=== PATIENT | male | born 1945 | race Caucasian/White ===

== ENCOUNTER 2019-02-13 12:36 | Inpatient (IN) | payer MEDICARE, BC ==
[2019-02-13 13:25] LABS: #Lymphocytes 1.2 thou/uL (1.20-3.40); #Monocytes 0.9 thou/uL (0.11-0.59); #Neutrophils 15.1 thou/uL (1.40-6.50); %Basophils 0.2 % (0.0-1.0); %Eosinophils 0.1 % (0.0-10.0); %Lymphocytes 6.9 % (21.0-51.0); %Neutrophils 87.9 % (42.0-75.0); Hemoglobin 17.7 g/dL (14.0-18.0); Mean Corpuscular Hemoglobin 29.9 pg (27.0-31.0); Mean Corpuscular Volume 93.4 fL (78.0-98.0); Platelet Count 246 thou/uL (130-400); RBC Distribution Width 13.4 % (11.5-14.5); Red Blood Cell (RBC) Count 5.94 mill/uL (4.70-6.10); White Blood Cell (WBC) Count 17.2 thou/uL (4.8-10.8)
[2019-02-13 13:34] LABS: Bilirubin Small (Negative); Blood, Urine Small (Negative); Clarity TURBID (Clear); Glucose, Urine (Dipstick) Negative (Negative); Leukocyte Negative (Negative); Nitrite Negative (Negative); Protein, Urine (Dipstick) 100 mg/dL (Neg-Trace)
[2019-02-13 13:36] LABS: Bacteria/HPF None Seen HPF (None Seen); Squamous Epithelial 0-3 HPF (0-3); WBC/HPF 0-3 HPF (0-3)
[2019-02-13 13:56] LABS: Pathc Cast-AUWi Flag 13.73 (0-2.49)
[2019-02-13] MEDS ORDERED: ISOVUE-370 76%-LOCM 1 ML ONE (13:58)
--- NOTE | 2019-02-13 13:58 | CT ---
CT Abdomen Pelvis W Con: 02/13/2019 1:14 PM CLINICAL INFORMATION: Abdominal pain. History of colon surgery with hepatic metastases. COMPARISON: PET CT 04/15/2016, CT abdomen/pelvis 09/09/2015 Procedure: Multiple contiguous axial images were obtained and a CT of the abdomen and pelvis with IV contrast. C oronal reformats were performed. FINDINGS: Lower Chest: within normal limits. Abdomen: Liver: There are hypodensities scattered throughout the liver measuring up to 3.4 cm in size which ar e nonspecific but could represent hepatic metastases. There appears to have been resection of the left lobe of the liver. Bile Ducts: Normal caliber. Gallbladder: No calcified gallstones. Normal caliber wall. Pancreas: within normal limits. Spleen: within normal limits. Adrenals: 3.4 cm fat-containing right adrenal mass. No left adrenal abnormality. Kidneys: within normal limits. Pelvis: Reproductive Organs: No pelvic masses. Ureters: within normal limits. Bladder: within normal limits. Peritoneum: A small amount of free fluid is seen in the pelvis. No free air is identified. Bowel: There are dilated proximal small bowel loops. There is thickening of the wall of the small bow el proximal to the ventral abdominal wall hernia. The distal small bowel and colon are decompressed. Mesentery and Retroperitoneum: No enlarged mesenteric or retroperitoneal lymph nodes. Vessels: Atherosclerotic calcifications. Abdominal Wall: There is a 7.0 cm ventral hernia containing small bowel. Bones: Degenerative changes are seen in the spine. IMPRESSION: 1. Ventral hernia containing dilated loops of small bowel. This may represent an incarcerated hernia and bowel obstruction. 2. Hypodensities in liver are concerning for hepatic metastatic disease 3. Right adrenal myelolipoma
[2019-02-13 14:00] LABS: Hyaline Casts/LPF 7-10 HYALINE CAST LPF (0-3 Hyaline)
[2019-02-13 14:01] LABS: Renal Epithelial None Seen HPF (0-3); Transitional Epithelial NONE SEEN HPF (0-3)
[2019-02-13 14:16] LABS: ALT (SGPT) 13 U/L (8-55); AST (SGOT) 20 U/L (5-34); Albumin 3.9 g/dL (3.4-4.8); Alkaline Phosphatase 140 U/L (40-150); Anion Gap 18 mmol/L (10-20); BUN (Urea Nitrogen) 13 mg/dL (8.4-25.7); Bilirubin, Total 1.1 mg/dL (0.2-1.2); Calc. Creatinine Clearance 0 mL/min (70-130); Calcium 9.8 mg/dL (7.8-10.44); Carbon Dioxide 20 mmol/L (23-31); Chloride 101 mmol/L (98-107); Estimated GFR-MDRD 68; Glucose 200 mg/dL (83-110); Lipase 11 U/L (8-78); Potassium 3.4 mmol/L (3.5-5.1); Protein, Total 7.9 g/dL (5.8-8.1); Sodium 136 mmol/L (136-145)
[2019-02-13] MEDS ORDERED: Ondansetron PF 4 MG/2 ML Vial ONE (16:12)
--- NOTE | 2019-02-13 18:39 | RAD ---
CHEST ONE VIEW 02/13/19 HISTORY: Pain. COMPARISON: Radiograph from 2015. FINDINGS: There is abnormal linear markings in the left lung base unchanged from 2015. The lungs are hyperinflated. Port catheter is in place in similar position. Large bulla right middle lobe. IMPRESSION: Chronic findings. No acute abnormality. POS: HOME
[2019-02-13] MEDS ORDERED: Ondansetron PF 4 MG/2 ML Vial IVP PRN ×2 (19:18→19:24)
[2019-02-13] MEDS ORDERED: hydrALAZINE 20 MG/ML VIAL SLOW IVP PRN (19:18)
[2019-02-13] MEDS ORDERED: Dextrose 5% in Water 1,000 ML IV PRN (19:24)
[2019-02-13] MEDS ORDERED: Dextrose 50% Abboject 50 ML SYRINGE SLOW IVP PRN (19:24)
[2019-02-13] MEDS ORDERED: Acetaminophen 1,000 MG in Premix Bag 1 BAG IVPB PRN (19:24)
[2019-02-13] MEDS ORDERED: Morphine 4 MG/ML VIAL SLOW IVP PRN (19:24)
[2019-02-13] MEDS ORDERED: Ketorolac Tromethamine 30 MG/ML VIAL IVP PRN (19:24)
[2019-02-13] MEDS ORDERED: Lactated Ringer's 1,000 ML IV SCH (19:30)
[2019-02-13] MEDS ORDERED: Meropenem 2 GM in Admixture Fee 1 EACH IVPB SCH (19:30)
[2019-02-13] MEDS ORDERED: Morphine 2 MG/ML SYRINGE SLOW IVP PRN (19:47)
--- NOTE | 2019-02-13 19:54 | HP ---
HISTORY OF PRESENT ILLNESS: Vikas Reyna is a 73-year-old male patient, followed by Dr. Whittington, whom I am seeing to assume his care tomorrow and this weekend. The patient underwent, in September 10, 2015, right colectomy for obstructing tumor, metastatic to liver, laparoscopic hand-assisted with a left subclavian vein MediPort placement. T3 N1 M1 right colon cancer. He had liver metastasis at that time. He has seen Dr. Lopez, undergone a left hepatic lobectomy and treatment of right hepatic lobe lesions. He has lesions that are followed. Echocardiogram September 2015, read by Dr. Martin Enriquez reveals EF 60% to 65%, [id number] tricuspid regurgitation. PAST MEDICAL HISTORY: Tobacco abuse, COPD, and metastatic colon cancer. PAST SURGICAL HISTORY: Knee surgery; cervical spine surgery; right colon resection; left hepatic lobectomy; right hepatic lesions treated by Dr. Lopez also, separate operation. ALLERGIES: NONE. SOCIAL HISTORY: The patient smokes 1/2 to 1 pack per day. Drinks beers occasionally. MEDICATIONS: 1. DuoNebs. 2. Tramadol. 3. Florastor. 4. P.r.n. Phenergan. PHYSICAL EXAMINATION: HEAD, EARS, EYES, NOSE, THROAT: Unremarkable. LUNGS: No wheezing. CARDIAC: Regular rate and rhythm without murmur or gallop. ABDOMEN: Soft and nontender. Right subcostal scar, midline incision, incisional hernia, supraumbilical midline, partially reducible. ABDOMEN: Soft, nondistended, nontympanitic. LABORATORY AND DIAGNOSTIC DATA: CAT scan reveals densities in the right lobe, measuring up to 3.4 cm, representing probably hepatic metastasis. Previous resection of left lobe of liver. Bile ducts normal. Basic metabolic profile unremarkable. Glucose 200. White count 17, hemoglobin 17. ASSESSMENT AND PLAN: Metastatic colon cancer with incisional hernia that is symptomatic emergency room. We would recommend robotic laparoscopic mesh repair, possible open, undergoing chemotherapy, and tobacco abusing increases risk of recurrence and complications. We will provide DVT prophylaxis and plan this tomorrow, currently without any NG tube. Job ID: [id number]
[2019-02-13] MEDS ORDERED: Enoxaparin Sodium 40 MG/0.4 ML SYRINGE SC SCH (21:00)
[2019-02-13] MEDS ORDERED: Famotidine/PF 20 mg/2ml Vial ONE (23:32)
[2019-02-14] MEDS ORDERED: Lactated Ringer's 1,000 ML IV SCH (02:45)
[2019-02-14] MEDS: Famotidine/PF 20 mg/2ml Vial SLOW IVP SCH ×2 (03:18→09:49)
[2019-02-14] MEDS: D5 1/2 NS w/20 mEq KCL 1,000 ML IV SCH ×3 (03:24→12:08)
[2019-02-14] MEDS ORDERED: Meropenem 2 GM, Admixture Fee 1 EACH in Sodium Chloride 0.9% 100 ML IVPB SCH (05:30)
[2019-02-14 06:20] LABS: #Lymphocytes 1.3 thou/uL (1.20-3.40); #Monocytes 2.1 thou/uL (0.11-0.59); #Neutrophils 15.6 thou/uL (1.40-6.50); %Basophils 0.1 % (0.0-1.0); %Eosinophils 0.1 % (0.0-10.0); %Lymphocytes 6.6 % (21.0-51.0); %Monocytes 11.3 % (0.0-10.0); %Neutrophils 81.9 % (42.0-75.0); Hemoglobin 16.7 g/dL (14.0-18.0); Mean Corpuscular HGB CONC 32.8 g/dL (32.0-36.0); Mean Corpuscular Hemoglobin 30.8 pg (27.0-31.0); Mean Corpuscular Volume 93.9 fL (78.0-98.0); Mean Platelet Volume 8.4 fL (7.4-10.4); Platelet Count 188 thou/uL (130-400); RBC Distribution Width 13.7 % (11.5-14.5); Red Blood Cell (RBC) Count 5.44 mill/uL (4.70-6.10)
[2019-02-14 06:42] LABS: Anion Gap 16 mmol/L (10-20); BUN (Urea Nitrogen) 20 mg/dL (8.4-25.7); Calc. Creatinine Clearance 63 mL/min (70-130); Calcium 8.7 mg/dL (7.8-10.44); Carbon Dioxide 17 mmol/L (23-31); Chloride 107 mmol/L (98-107); Estimated GFR-MDRD 56; Glucose 165 mg/dL (83-110); Potassium 4.4 mmol/L (3.5-5.1); Sodium 136 mmol/L (136-145)
[2019-02-14] MEDS ORDERED: Prevnar 13-Val Conj/PF 0.5 ML SYRINGE IM ONE (09:00)
--- NOTE | 2019-02-14 09:38 | CON ---
DATE OF CONSULTATION: HISTORY OF PRESENT ILLNESS: Vikas Reyna is a 73-year-old gentleman, who was brought to the ER with acute abdomen and was found to have incarcerated ventral hernia. Surgery is to be performed tomorrow. Pulmonary meeks, he says he is not having any issues and denies any difficulty breathing, but he smokes about half a pack a day. He sees Dr. De Dios for routine care. He has history of known metastatic colon cancer to the liver. Sees a local oncologist. PAST MEDICAL HISTORY: COPD, metastatic cancer, history of atrial fibrillation and ongoing tobacco abuse. PREVIOUS SURGERIES: Including colon resection, hepatic lobectomy, cervical spine surgery, and knee surgery. MEDICATIONS: Tramadol 100 and nebulizer as needed. ALLERGIES: NONE. SOCIAL AND FAMILY HISTORY: Unremarkable. Alcohol, none. Tobacco, as noted. REVIEW OF SYSTEMS: Ten-point negative. PHYSICAL EXAMINATION: VITAL SIGNS: O2 saturation is 92%, pulse 135, blood pressure 118/75, respiratory rate . GENERAL: He is awake, alert, responsive, in no distress. CHEST: Decreased breath sounds. No wheezing. CARDIAC: Normal S1, S2. No gallops. ABDOMEN: No masses. LABORATORY DATA: White count 40438, H and H is 16 and 51, and platelet count 188. Creatinine is 1.25. Urine was normal. Chest x-ray shows hyperinflation. CT abdomen as noted shows evidence of hepatic metastasis and ventral hernia, dilated loops incarcerated. IMPRESSION: 1. Incarcerated ventral hernia for surgery today. 2. Metastatic colon cancer to the liver. 3. Chronic obstructive pulmonary disease, tobacco abuse. 4. History of atrial fibrillation. PLAN: Await input from surgery and he is on broad-spectrum antibiotics. I am going to start him on neb treatments and supportive care. We will follow while in the ICU. Consultation note, 70 minutes, 50% direct patient care. Job ID: [id number]
--- NOTE | 2019-02-14 09:39 | RAD ---
ABDOMEN 2 VIEWS WITH A 1 VIEW CHEST X-RAY: Date: 02/14/19 HISTORY: Small bowel follow-up. COMPARISON: CT prior day. FINDINGS: There are atelectatic changes in the left lung base, superimposed on scarring. Cord catheter tip in s imilar position. On the left lateral decubitus view, no free air is seen on the right-sided hemiabdomen. There are dil ated and air-filled loops of small bowel. IMPRESSION: No evidence for free air. Small bowel obstruction. POS: [facility]
--- NOTE | 2019-02-14 12:00 | PRG ---
DATE OF SERVICE: 02/14/2019 Vikas Reyna today is still having pain. He was transferred to the IMCU from the ER last night due to hypotension and tachycardia. He was given fluid boluses. His hemoglobin was 17 in the ER. This morning, his blood pressure is 134/102, heart rate has decreased from 150 to 112. He has sinus tach. This has much improved with hydration. White count is 19, hemoglobin 16. Basic metabolic profile is unremarkable. CO2 has decreased to 17. Dr. Bridges has seen him. As the patient continues to smoke 1/2 to 1 pack per day and has COPD, he will need preoperative critical care help in management. He is at high risk for requiring a postoperative ventilation. He has a history of atrial fibrillation. Family was informed that today we were planning robotic laparoscopic mesh repair of incisional hernia, possible open. They understand the risks and benefits, and the concerns. They understand the need for postoperative ventilation and questions had been answered. This morning, his sodium is 136, potassium 4.4, CO2 is 17, creatinine 1.27, GFR 56. His white count is 19, hemoglobin 16. Note, plan as above. Job ID: [id number]
[2019-02-14] MEDS: Meropenem 2 GM, Admixture Fee 1 EACH in Sodium Chloride 0.9% 100 ML IVPB SCH ×2 (12:06→20:55)
[2019-02-14] MEDS ORDERED: Fentanyl 100 MCG/2 ML VIAL ONE ×5 (13:04→17:08)
[2019-02-14] MEDS ORDERED: Midazolam HCl 2 mg/2 ml Vial ONE (13:04)
[2019-02-14] MEDS ORDERED: Bupivacaine/Epinephrine 0.25% 30 ML VIAL ONE (13:28)
[2019-02-14] MEDS ORDERED: Phenylephrine HCL 10 MG/ML VIAL ONE (14:54)
[2019-02-14] MEDS ORDERED: Albumin 5% 500 ML ONE (15:40)
[2019-02-14] MEDS ORDERED: SUGAMMADEX SODIUM 200 MG/2 ML VIAL ONE (16:19)
[2019-02-14] MEDS ORDERED: Bupivacaine HCl 0.5%/Epinephrine 1:200,000/PF 30 ml Vial ONE (16:31)
[2019-02-14] MEDS ORDERED: HYDROmorphone 2 MG/ML VIAL SLOW IVP PRN (16:46)
[2019-02-14] MEDS ORDERED: PACU-Morphine 4MG/ML VIAL SLOW IVP PRN (16:46)
[2019-02-14] MEDS ORDERED: Promethazine HCl 25 MG/ML VIAL IM PRN (16:46)
[2019-02-14] MEDS ORDERED: Ondansetron HCl/PF 4 MG/2 ML Vial IVP PRN (16:46)
[2019-02-14] MEDS ORDERED: Promethazine HCl 25 MG/ML VIAL SLOW IVP PRN (16:46)
[2019-02-14] MEDS ORDERED: Promethazine HCl 25 MG/ML VIAL ONE (16:47)
[2019-02-14] MEDS ORDERED: Metoprolol Tartrate 5 MG/5 ML VIAL ONE (16:48)
[2019-02-14] MEDS ORDERED: Rocuronium Bromide 10 MG/ML (10ML VIAL) ONE (16:48)
[2019-02-14] MEDS ORDERED: PROPOFOL 200 MG/20 ML VIAL ONE (16:48)
[2019-02-14] MEDS ORDERED: Lidocaine 1% PF 5 ML VIAL ONE (16:48)
[2019-02-14] MEDS ORDERED: Esmolol 100 MG/10 ML VIAL ONE (16:48)
[2019-02-14] MEDS ORDERED: Succinylcholine Chloride 20 MG/ML 10 ml SYRINGE FS ONE (16:48)
[2019-02-14] MEDS ORDERED: PHENYLEPHRINE-NS 100 MCG/ML 10 ML SYRINGE ONE (16:48)
--- NOTE | 2019-02-14 17:21 | RAD ---
Chest one view HISTORY: Central line placement. COMPARISON: Earlier exam on the same date. FINDINGS: Tip of a new right subclavian central venous catheter projects over the cavoatrial junction . No evidence of pneumothorax. Nasogastric tube descends to the stomach, exiting the inferior margin of the image. Left subclavian Port-A-Cath remains in place. Opacity at the left base has increased, with the appearance of pleural fluid. IMPRESSION: Right subclavian central venous catheter and nasogastric tube are in good radiographic po sition. Interval increase of left pleural fluid and left basilar atelectasis.
[2019-02-14] MEDS: Lactated Ringer's 1,000 ML IV SCH (17:50)
[2019-02-14] MEDS: Albumin 25% 25 GM/100 ML BOT IVPB SCH ×2 (17:50→23:29)
--- NOTE | 2019-02-15 00:31 | OP ---
DATE OF PROCEDURE: 02/14/2019 PREOPERATIVE DIAGNOSES: History of right colon cancer status post right colectomy with left hepatic lobectomy and third operation to treat metastatic focus, right lobe, ongoing chemotherapy for colon, hepatic metastasis, tobacco abuse, incisional hernia, incarcerated. POSTOPERATIVE DIAGNOSES: History of right colon cancer status post right colectomy with left hepatic lobectomy and third operation to treat metastatic focus, right lobe, ongoing chemotherapy for colon, hepatic metastasis, tobacco abuse, with incarcerated strangulated incisional hernia with small bowel gangrene. PROCEDURES PERFORMED: Laparoscopy converted to laparotomy with resection of hernia sac, lysis of adhesions, resection of 63 inches gangrenous mid small bowel, nonviable, preservation of 47 inches proximal jejunum and preservation of 55 inches distal ileum with primary anastomosis. ESTIMATED BLOOD LOSS: 70 mL. BLOOD TRANSFUSED: None. No evidence of metastatic disease noted, visibly seen, although radiologically on CAT scan densities noted consistent with past history of colon metastasis, remaining right lobe after left lobe resection by Dr. Lopez, right subclavian vein central line. ANESTHESIA: General, TAP block. DESCRIPTION OF PROCEDURE: The patient was taken to the operating room where under general anesthesia and TAP block, abdomen was prepared with ChloraPrep and draped in routine fashion. Left lateral incision, subcostal, made and pneumoperitoneum to 15 mmHg was obtained with a Veress needle, replacing with a 5 port and video laparoscope was inserted noting ischemic gangrenous bowel. Scope was removed and midline laparotomy was made through the old incision from the umbilicus, cephalad. Incision was carried down to the skin and subcutaneous tissue, opened the hernia noting gangrenous small bowel. Fascial bridges taken down with cautery. Midline fascia was opened slightly more superiorly and inferiorly allowing exploration. Small bowel removed. There were few adhesions, taken down with cautery and sharp dissection. Once the small bowel was detorsed, segments regained vascularity, but the mid small bowel, 63 inches, remained gangrenous. This was resected using the LigaSure dividing each end along viable areas with KRISTEN stapler. Abdominal cavity was irrigated. A [id number]-[id number] anastomosis was created with a KRISTEN stapling technique using several fires of KRISTEN blue load stapler. Mesenteric defect was closed with 3-0 silk [id number] and anastomosis was reinforced with interrupted Lembert suture of 3-0 silk. Abdominal cavity was thoroughly irrigated with saline solution. Good hemostasis was noted. No other complications were noted. Remaining bowel was viable. There was 47 inches of viable jejunum proximally and 55 inches viable ileum distally. The 63 inches mid small bowel gangrenous was resected. The patient tolerated the procedure well. Abdominal cavity was thoroughly irrigated, irrigant evacuated. The hernia sac was then debrided from the subcutaneous tissues identifying viable fascia. Fascia was then closed with a combination of continuous and occasional locking #1 PDS suture. Once this was complete, abdominal wall was irrigated, good hemostasis was obtained. Woden were used to approximate the midline wound distally and proximally of the skin and subcutaneous tissue left open with application of wound VAC. The patient tolerated the procedure well. He was extubated in the operating room, transferred to the recovery room and then ICU in stable condition. Job ID: [id number]
[2019-02-15] MEDS: Lactated Ringer's 1,000 ML IV SCH ×4 (02:05→19:40)
[2019-02-15] MEDS: Meropenem 2 GM, Admixture Fee 1 EACH in Sodium Chloride 0.9% 100 ML IVPB SCH ×3 (04:55→20:53)
[2019-02-15 05:28] LABS: Anion Gap 11 mmol/L (10-20); BUN (Urea Nitrogen) 19 mg/dL (8.4-25.7); Calc. Creatinine Clearance 81 mL/min (70-130); Calcium 8.3 mg/dL (7.8-10.44); Carbon Dioxide 26 mmol/L (23-31); Chloride 106 mmol/L (98-107); Estimated GFR-MDRD 74; Glucose 94 mg/dL (83-110); Magnesium 1.6 mg/dL (1.6-2.6); Potassium 4.1 mmol/L (3.5-5.1); Sodium 139 mmol/L (136-145)
[2019-02-15 05:31] LABS: Phosphorus 1.9 mg/dL (2.3-4.7)
[2019-02-15] MEDS: Albumin 25% 25 GM/100 ML BOT IVPB SCH ×3 (05:38→18:43)
[2019-02-15 05:40] LABS: Band 22 % (5-11); Hemoglobin 11.3 g/dL (14.0-18.0); Lymphocytes 9 % (21-51); MDiff Complete? YES; Mean Corpuscular HGB CONC 33.4 g/dL (32.0-36.0); Mean Corpuscular Hemoglobin 30.7 pg (27.0-31.0); Mean Corpuscular Volume 92.1 fL (78.0-98.0); Metamyelocyte 1 % (0-0); Monocytes 7 % (0-10); Neutrophil 61 % (42-75); Platelet Count 78 thou/uL (130-400); Platelet Morphology Comment Appears Decreased; RBC Distribution Width 13.3 % (11.5-14.5); Red Blood Cell (RBC) Count 3.67 mill/uL (4.70-6.10); White Blood Cell (WBC) Count 8.7 thou/uL (4.8-10.8)
[2019-02-15] MEDS ORDERED: Acetaminophen 1,000 MG in Premix Bag 1 BAG IVPB PRN (09:26)
[2019-02-15] MEDS ORDERED: Sodium Chloride 0.9% 500 ML IV SCH (09:30)
--- NOTE | 2019-02-15 09:46 | PRG ---
DATE OF SERVICE: 02/15/2019 SUBJECTIVE: The patient is status post small bowel resection for incarcerated small bowel obstruction. The patient is feeling better. He has come reporting minimal pain. Primary complaint is thirst, he wants something to drink. OBJECTIVE: VITAL SIGNS: On examination, his blood pressure is 139/74, pulse 104. GENERAL: He is awake, alert. ABDOMEN: He is putting a lot out of his NG tube, kind of brownish fluid. He has had 700 almost a liter out in the last 12 hours. His abdomen is slightly distended. He has a wound VAC in place. There is no erythema, minimal tenderness. LABORATORY DATA: His white count is 8.7, H and H 11 and 33, platelet count is only 78,000. His electrolytes are fine. Urinalysis clear. ASSESSMENT: Postoperative ileus. PLAN: He can have some ice chips. We will start him on some Protonix. We will give him a little fluid bolus. We may need to watch his heparin. Job ID: [id number]
--- NOTE | 2019-02-15 09:53 | PRG ---
DATE OF SERVICE: 02/15/2019 SUBJECTIVE: This morning status post lap, incarcerated ventral hernia, is doing well. No shortness of breath. OBJECTIVE: VITAL SIGNS: Pulse 100, respiratory rate on 3 L, blood pressure 130/71. CHEST: Decreased breath sounds. No wheezing. CARDIAC: Normal S1, S2. No gallops. ABDOMEN: No masses. LABORATORY DATA: Unremarkable. IMPRESSION: Laparotomy, incarcerated hernia, chronic obstructive pulmonary disease. PLAN: Continue antibiotics, neb treatments, supportive care. We will follow. Job ID: [id number]
[2019-02-15 12:11] LABS: Band 31 % (5-11); Hemoglobin 10.8 g/dL (14.0-18.0); Lymphocytes 10 % (21-51); MDiff Complete? YES; Mean Corpuscular HGB CONC 32.9 g/dL (32.0-36.0); Mean Corpuscular Hemoglobin 31.1 pg (27.0-31.0); Mean Corpuscular Volume 94.6 fL (78.0-98.0); Mean Platelet Volume 9.6 fL (7.4-10.4); Metamyelocyte 1 % (0-0); Monocytes 7 % (0-10); Neutrophil 51 % (42-75); Platelet Count 73 thou/uL (130-400); Platelet Morphology Comment Appears Decreased; RBC Distribution Width 13.4 % (11.5-14.5); Red Blood Cell (RBC) Count 3.48 mill/uL (4.70-6.10); White Blood Cell (WBC) Count 7.9 thou/uL (4.8-10.8)
--- NOTE | 2019-02-15 14:27 | EKG ---
Test Reason : Blood Pressure : / mmHG Vent. Rate : 122 BPM Atrial Rate : 122 BPM P-R Int : 144 ms QRS Dur : 072 ms QT Int : 312 ms P-R-T Axes : 072 048 087 degrees QTc Int : 444 ms Sinus tachycardia Otherwise normal ECG Confirmed by ONI BETANCUR DO ([id number]), managing editor THAI FORBES ([id number] on 02/15/2019 2:26:43 PM Referred By: Confirmed By:ONI BETANCUR DO
[2019-02-15] MEDS ORDERED: Albumin 25% 25 GM/100 ML BOT IVPB SCH (18:30)
[2019-02-16] MEDS: Lactated Ringer's 1,000 ML IV SCH ×5 (00:44→23:10)
[2019-02-16] MEDS: Meropenem 2 GM, Admixture Fee 1 EACH in Sodium Chloride 0.9% 100 ML IVPB SCH ×3 (04:31→19:59)
[2019-02-16 05:22] LABS: #Lymphocytes 0.6 thou/uL (1.20-3.40); #Monocytes 0.4 thou/uL (0.11-0.59); #Neutrophils 4.8 thou/uL (1.40-6.50); %Basophils 0.3 % (0.0-1.0); %Eosinophils 0.2 % (0.0-10.0); %Lymphocytes 10.7 % (21.0-51.0); %Monocytes 6.9 % (0.0-10.0); Hemoglobin 9.9 g/dL (14.0-18.0); Mean Corpuscular HGB CONC 33.3 g/dL (32.0-36.0); Mean Corpuscular Hemoglobin 31.5 pg (27.0-31.0); Mean Corpuscular Volume 94.4 fL (78.0-98.0); Mean Platelet Volume 9.1 fL (7.4-10.4); Platelet Count 79 thou/uL (130-400); RBC Distribution Width 13.2 % (11.5-14.5); Red Blood Cell (RBC) Count 3.16 mill/uL (4.70-6.10); White Blood Cell (WBC) Count 5.9 thou/uL (4.8-10.8)
[2019-02-16 05:26] LABS: Anion Gap 10 mmol/L (10-20); BUN (Urea Nitrogen) 10 mg/dL (8.4-25.7); Calc. Creatinine Clearance 109 mL/min (70-130); Calcium 8.8 mg/dL (7.8-10.44); Carbon Dioxide 30 mmol/L (23-31); Chloride 104 mmol/L (98-107); Estimated GFR-MDRD Greater than 90; Glucose 75 mg/dL (83-110); Magnesium 1.9 mg/dL (1.6-2.6); Phosphorus 1.3 mg/dL (2.3-4.7); Potassium 3.7 mmol/L (3.5-5.1); Sodium 140 mmol/L (136-145)
[2019-02-16] MEDS ORDERED: Digoxin 0.5 MG/2 ML AMP SLOW IVP SCH ×2 (09:00→16:00)
[2019-02-16] MEDS ORDERED: Magnesium 2 GM/NS 0.9% 100 ML 2 GM in Premix Bag 1 BAG IVPB SCH (09:00)
[2019-02-16] MEDS ORDERED: Magnesium 2 GM/50 ML 2 GM in Premix Bag 1 BAG IVPB SCH (09:15)
[2019-02-16] MEDS: Pantoprazole 40 MG VIAL IVP SCH (09:19)
[2019-02-16] MEDS ORDERED: Amiodarone 150 MG, Admixture Fee 1 EACH in Dextrose 5% in Water 100 ML IVPB SCH (11:15)
[2019-02-16] MEDS: Amiodarone 450 MG in Dextrose 5% in Water 250 ML IVPB SCH ×2 (11:29→19:09)
--- NOTE | 2019-02-16 12:28 | PRG ---
DATE OF SERVICE: 02/16/2019 SUBJECTIVE: The patient went into atrial flutter at a rapid ventricular rate. Cardiology has been consulted. He has been started on amiodarone drip. He feels fine. He is having no significant pain. He is consuming a quite a bit of ice chips. No flatus. OBJECTIVE: GENERAL: On examination, he is awake and alert. ABDOMEN: Soft, nondistended, and nontender. He has a wound VAC on place. VITAL SIGNS: His temperature is 98.1, pulse is 128 and in flutter, and blood pressure 120/78. He looks good otherwise. He has had 2100 mL of gastric drainage. The nurse reports a lot of that is the ice chips. Urine output is 2245. LABORATORY DATA: His white count is 5.9, hemoglobin and hematocrit 9.9, 29.8. Electrolytes are fine. Glucose is 75. ASSESSMENT: 1. Atrial flutter. 2. Postoperative ileus. PLAN: Continue NG suction. Job ID: [id number]
--- NOTE | 2019-02-16 18:04 | CON ---
DATE OF CONSULTATION: CORRECTION: I believe I stated the patient had hypercholesterolemia. I do not see in his records that he does have hypercholesterolemia. Please remove that from the records and also in the assessment and plan where the patient has hypercholesterolemia that we will continue statins, please disregard that if this is mentioned. Job ID: [id number]
--- NOTE | 2019-02-16 18:23 | CON ---
DATE OF CONSULTATION: 02/16/2019 INDICATION FOR CONSULTATION: A 73-year-old gentleman, who is status post GI surgery for incarcerated hernia, who has now developed atrial flutter, has a rapid ventricular response. HISTORY OF PRESENT ILLNESS: This very unfortunate 73-year-old with history of colon cancer and liver mets, has undergone several abdominal surgeries and then presented again with abdominal discomfort, underwent surgery I believe yesterday and in the postoperative period, he has now developed atrial flutter with a rapid ventricular response, heart rates in the 135. His carotid massage is easily detectable that this is underlying atrial flutter and his blood pressure is 121/ 71, O2 saturation is 97%. He is relatively comfortable. He is not having any complaints from a cardiac standpoint. He has been seen by Dr. Mcdaniel in the past and then evaluate for atrial fibrillation and flutter. Unfortunately, he has refused to take oral anticoagulation despite being told the other risk involved with embolic phenomenon. Otherwise, his cardiac status has remained stable throughout this time. He does have a history of hypertension, however, and has a long history of tobacco abuse and refuses to stop smoking. He smokes at least a pack a day and has smoked for close to 50 to 60 years. PAST MEDICAL HISTORY: Significant for the colon cancer, mets to the liver, hypertension, atrial fibrillation and flutter, history of cataract surgery, which has been relatively recent. He has had knee surgery and neck surgery. ALLERGIES: NONE. MEDICATIONS: Prior to admission include aspirin 81 mg a day. He takes olmesartan 20 mg half a tablet daily, Avastin 400 mg/16 mL directed as intravenously, as he had been doing relatively well with this. Otherwise, he was not on any significant medications prior to admission. At this time, his medications include magnesium. He has been given doses of magnesium and is not ongoing with this as needed. He is also on digoxin, has been given one dose, so the heart rate did not appear to be very successful. He is also on morphine and other p.r.n. medications. FAMILY HISTORY: Noncontributory. ALLERGIES: NONE. SOCIAL HISTORY: He is . He continues to smoke as noted above. REVIEW OF SYSTEMS: 12-point review of systems unremarkable except was noted in the history of present illness. LABORATORY DATA: Shows a WBC of 5.9, hemoglobin was 9.9. On admission, hemoglobin was 17.7. Platelet count is 79,000 and on admission was 246,000. His sodium is 140, potassium 3.7, BUN 10, creatinine 0.75,blood sugar 75. Troponin I, it was negative at 0.016. PHYSICAL EXAMINATION: GENERAL: Reveals an elderly gentleman, in no acute distress at this time. VITAL SIGNS: Blood pressure 121/71, heart rates were in the 130s and shows atrial flutter, O2 saturation is 99%. He is afebrile. HEENT: Shows head to be normocephalic and atraumatic. Carotid pulses are present. He has good carotid upstrokes. His chest has decreased breath sounds throughout , but did not hear rales, rhonchi, or wheezing. CARDIOVASCULAR: Reveals a regular rhythm. Tachycardia. I cannot elicit any significant murmurs. ABDOMEN: Has a surgical dressing in place. Hypoactive bowel sounds are present. He does have a wound VAC in place and has multiple previously healed incisions, but the wound VAC remains in place in the midline. EXTREMITIES: Show no clubbing, cyanosis, or edema. Pedal pulses are present. NEUROLOGIC: The patient appears to be intact. SKIN: Warm and dry. IMPRESSION: Atrial flutter with rapid ventricular response. He has been given a dose of digoxin without effect. We will start him on IV amiodarone to see if we convert him from his atrial flutter back to sinus rhythm. I have also suggested and discussed with the patient the possibility to undergone ablation. Since this is on multiple times, the patient has suffered atrial flutter, usually associated with stressful situations such as surgery. We will ask for an EP consultation tomorrow or Sunday. In the meantime, we will control the heart rate and hopefully converted back to sinus rhythm. If he becomes too tachycardic or hypotensive, we could always consider an electrical cardioversion of the atrial flutter with a low joule attempt. History of abdominal surgery, which was just performed on Sunday due to incarcerated hernias. Also, history of colon cancer and liver cancer, for which he has undergone resections. History of hypertension, which is stable at this time. History of hypercholesterolemia. He will remain on his medications once he is able to taking p.o. medications. History of continued tobacco abuse. He has been advised to stop smoking, but refuses to do so. Also in the past please note, he has refused to take oral anticoagulation for his atrial fibrillation and flutter. We will be more than happy to continue to follow the patient with you. We can consider obtaining another echocardiogram for evaluation of his left ventricular systolic function while the patient is here in the hospital. Job ID: [id number] MTDD
[2019-02-17] MEDS: Amiodarone 450 MG in Dextrose 5% in Water 250 ML IVPB SCH (02:22)
[2019-02-17] MEDS: Meropenem 2 GM, Admixture Fee 1 EACH in Sodium Chloride 0.9% 100 ML IVPB SCH ×3 (04:06→20:55)
[2019-02-17] MEDS: Lactated Ringer's 1,000 ML IV SCH ×3 (04:06→15:40)
[2019-02-17 04:19] LABS: #Lymphocytes 0.8 thou/uL (1.20-3.40); #Monocytes 0.4 thou/uL (0.11-0.59); #Neutrophils 6.3 thou/uL (1.40-6.50); %Basophils 0.1 % (0.0-1.0); %Eosinophils 0.5 % (0.0-10.0); %Lymphocytes 10.4 % (21.0-51.0); %Monocytes 5.3 % (0.0-10.0); %Neutrophils 83.6 % (42.0-75.0); Hemoglobin 11.2 g/dL (14.0-18.0); Mean Corpuscular HGB CONC 32.1 g/dL (32.0-36.0); Mean Corpuscular Hemoglobin 30.4 pg (27.0-31.0); Mean Corpuscular Volume 94.6 fL (78.0-98.0); Mean Platelet Volume 7.5 fL (7.4-10.4); Platelet Count 136 thou/uL (130-400); RBC Distribution Width 13.1 % (11.5-14.5); Red Blood Cell (RBC) Count 3.67 mill/uL (4.70-6.10); White Blood Cell (WBC) Count 7.6 thou/uL (4.8-10.8)
[2019-02-17 04:32] LABS: Anion Gap 11 mmol/L (10-20); BUN (Urea Nitrogen) 8 mg/dL (8.4-25.7); Calc. Creatinine Clearance 110 mL/min (70-130); Calcium 8.8 mg/dL (7.8-10.44); Carbon Dioxide 28 mmol/L (23-31); Chloride 101 mmol/L (98-107); Estimated GFR-MDRD Greater than 90; Glucose 78 mg/dL (83-110); Potassium 3.7 mmol/L (3.5-5.1); Sodium 136 mmol/L (136-145)
--- NOTE | 2019-02-17 06:28 | PDOC.CTH ---
Cardiology Progress Note - Subjective pt continues with ileus. Aflutter appears to have convertedf to afib. No symptoms. Still not passing gas, nnot taking po - Objective Vital Signs Temp Pulse Ox 02/17/19 04:00 99.2 F 02/17/19 00:36 97 02/17/19 00:00 99.6 F 02/16/19 20:00 99.8 F H 98 02/16/19 18:54 98 Admit Weight 186 lb 14.4 oz Weight 199 lb 11.821 oz 02/15/19 02/16/19 02/17/19 06:59 06:59 06:59 Intake Total 2945 4689 4195 Output Total 1820 4345 2605 Balance 9452 661 2796 - Physical Examination General/Neuro: alert & oriented x3, NAD Neck: carotid US brisk, no JVD present Lungs: unlabored respirations Heart: RRR, other: (tachycardic) Abdomen: NT/ND, other: Extremities: + femoral B - Labs Result Diagrams: 02/17/19 04:15 02/17/19 04:15 Troponin/CKMB Troponin I 0.016 ng/mL (< 0.028) 02/13/19 13:02 - Assessment/Plan aflutter post op ileus incarcerated hernia s/p repair Add IV CCB Not taking po Continue to titrate up CCB if needed Continue amiodarone
--- NOTE | 2019-02-17 09:19 | PRG ---
DATE OF SERVICE: 02/16/2019 SUBJECTIVE: Vikas Reyna, a 73-year-old gentleman status post surgery for incarcerated hernia. OBJECTIVE: VITAL SIGNS: This morning had atrial fibrillation, rate 141, blood pressure respiratory rate 20, sats 90%. GENERAL: Denies any pain or discomfort. CHEST: Decreased breath sounds. No wheezing. CARDIAC: Atrial fibrillation. ABDOMEN: Soft. LABORATORY DATA: Unremarkable. H and H 9 and 29. ASSESSMENT: 1. Status post surgery for incarcerated hernia. 2. Chronic obstructive pulmonary disease. 3. Atrial fibrillation. PLAN: I am going to start him on some digoxin, will consult Cardiology. Supportive care. Job ID: [id number]
--- NOTE | 2019-02-17 09:26 | PRG ---
DATE OF SERVICE: 02/17/2019 SUBJECTIVE: Mr. Melquiades Bean is much better this morning. He is less short of breath and less coughing. OBJECTIVE: VITAL SIGNS: Saturations are 99% on 2 L, pulse 136, blood pressure 129/93. CHEST: Decreased breath sounds. No wheezing. CARDIAC: Normal S1, S2. No gallops. ABDOMEN: No masses. LABORATORY DATA: Lytes are normal. He is on a amiodarone drip. IMPRESSION: Abdominal sepsis, incarcerated hernia, supraventricular tachycardia and chronic obstructive pulmonary disease. PLAN: Continue cardiac care. Continue neb treatments and supportive care. He can be transferred out of the ICU any time. Job ID: [id number]
[2019-02-17] MEDS: Pantoprazole 40 MG VIAL IVP SCH (09:51)
[2019-02-17] MEDS: Diltiazem 125 MG in Sodium Chloride 0.9% 100 ML IVPB SCH ×2 (09:53→22:53)
[2019-02-17] MEDS ORDERED: Enoxaparin Sodium 40 MG/0.4 ML SYRINGE SC SCH (10:00)
--- NOTE | 2019-02-17 11:12 | PRG ---
DATE OF SERVICE: 02/17/2019 SUBJECTIVE: Vikas Reyna is doing well today. He is in ICU. His heart rate is in 130. He had problems with atrial fibrillation over the weekend. Dr. Magnus Bocanegra is seeing him. The patient has an NG tube in place. Initial output was 2.1 L over the weekend, but in the last 24 hours, it was 550 mL. Urine output 5. OBJECTIVE: LUNGS: Clear to auscultation. CARDIAC: Irregular, regular. ABDOMEN: Soft, occasional bowel sounds. No flatus. No stool. EXTREMITIES: Unremarkable. Abdominal wound, granulating wound VAC change today. Outpatient wound care wound VAC will be necessary. LABORATORY DATA: Hemoglobin 11, white count 7.6. Basic metabolic profile is normal. BUN 8, creatinine 0.74. Dr. Bridges is seeing him. At this point, would continue NG tube, wait for better bowel function. He can have medications with a sip of water and can have ice chips, sips of water, gum or hard candy. He had about 5 feet of small bowel resected with anastomosis and now I am awaiting GI function. Up in a chair 3 to 4 times a day in ICU. Physical therapy, mobility and ambulation. Will decrease his IV fluids. Continue ICU care for now. Job ID: [id number]
--- NOTE | 2019-02-17 22:45 | EKG ---
Test Reason : Blood Pressure : / mmHG Vent. Rate : 142 BPM Atrial Rate : 284 BPM P-R Int : 000 ms QRS Dur : 080 ms QT Int : 250 ms P-R-T Axes : 000 072 258 degrees QTc Int : 384 ms Atrial flutter with 2:1 A-V conduction Nonspecific ST and T wave abnormality Abnormal ECG When compared with ECG of 13-FEB-2019 21:43, Atrial flutter has replaced Sinus rhythm ST now depressed in Inferior leads T wave inversion now evident in Inferior leads T wave inversion now evident in Lateral leads Confirmed by Jose BRUNO ([id number]) on 02/17/2019 10:45:11 PM Referred By: DAMION Confirmed By:Jose BRUNO
[2019-02-18] MEDS: Meropenem 2 GM, Admixture Fee 1 EACH in Sodium Chloride 0.9% 100 ML IVPB SCH ×3 (03:08→20:57)
[2019-02-18] MEDS: Lactated Ringer's 1,000 ML IV SCH (03:08)
[2019-02-18 05:11] LABS: #Eosinphils 0.1 thou/uL (0.0-0.7); #Lymphocytes 0.7 thou/uL (1.20-3.40); #Monocytes 0.6 thou/uL (0.11-0.59); #Neutrophils 7.4 thou/uL (1.40-6.50); %Basophils 0.1 % (0.0-1.0); %Eosinophils 1.7 % (0.0-10.0); %Lymphocytes 7.8 % (21.0-51.0); %Monocytes 6.2 % (0.0-10.0); %Neutrophils 84.2 % (42.0-75.0); Hemoglobin 11.3 g/dL (14.0-18.0); Mean Corpuscular HGB CONC 31.9 g/dL (32.0-36.0); Mean Corpuscular Hemoglobin 29.9 pg (27.0-31.0); Mean Corpuscular Volume 93.7 fL (78.0-98.0); Platelet Count 179 thou/uL (130-400); RBC Distribution Width 13.2 % (11.5-14.5); Red Blood Cell (RBC) Count 3.78 mill/uL (4.70-6.10); White Blood Cell (WBC) Count 8.8 thou/uL (4.8-10.8)
[2019-02-18 05:30] LABS: Anion Gap 9 mmol/L (10-20); BUN (Urea Nitrogen) 8 mg/dL (8.4-25.7); Calc. Creatinine Clearance 114 mL/min (70-130); Calcium 8.6 mg/dL (7.8-10.44); Carbon Dioxide 31 mmol/L (23-31); Chloride 98 mmol/L (98-107); Estimated GFR-MDRD Greater than 90; Glucose 97 mg/dL (83-110); Potassium 3.8 mmol/L (3.5-5.1); Sodium 134 mmol/L (136-145)
--- NOTE | 2019-02-18 05:49 | PDOC.CTH ---
Cardiology Progress Note - Subjective overall better HR meeks - Objective Vital Signs Temp Pulse Resp Pulse Ox 02/18/19 04:13 99.5 F 02/18/19 00:06 98.7 F 02/18/19 00:01 73 16 98 02/17/19 19:08 97.5 F L 02/17/19 18:26 74 18 97 Admit Weight 186 lb 14.4 oz Weight 199 lb 11.821 oz 02/16/19 02/17/19 02/18/19 06:59 06:59 06:59 Intake Total 4689 4195 Output Total 4345 2605 945 Balance 344 1590 -945 - Physical Examination General/Neuro: alert & oriented x3, NAD Neck: no JVD present Lungs: CTA, unlabored respirations Heart: PMI normal, other: (irr) Abdomen: NT/ND, soft Extremities: + femoral B - Telemetry Telemetry Rhythm: IRR - Labs Result Diagrams: 02/18/19 05:00 02/18/19 05:00 Troponin/CKMB Troponin I 0.016 ng/mL (< 0.028) 02/13/19 13:02 - Assessment/Plan Afib Recent incarcerated hernia Pt has been adament about taking ACT as an outpatient; Will cover while in hopsital but do not anticipate pt to be compliant as OP Continue rate control with IV CCB till ileus resolves then can start PO
--- NOTE | 2019-02-18 09:30 | PRG ---
DATE OF SERVICE: 02/18/2019 SUBJECTIVE: This morning, awake, alert and responsive. OBJECTIVE: VITAL SIGNS: Saturations are 100% on 2 L, respiratory rate 18, pulse 94, blood pressure 126/73. CHEST: Decreased breath sounds. No wheezing. CARDIAC: Normal S1, S2. No gallops. ABDOMEN: No masses. IMPRESSION: 1. Status post laparoscopy, incarcerated hernia. 2. Chronic obstructive pulmonary disease. 3. Supraventricular tachycardia. Discontinue O2. Antibiotics as per surgery. PT and supportive care will follow. Job ID: [id number]
[2019-02-18] MEDS: Diltiazem 125 MG in Sodium Chloride 0.9% 100 ML IVPB SCH ×2 (09:37→22:15)
[2019-02-18] MEDS: Enoxaparin Sodium 40 MG/0.4 ML SYRINGE SC SCH (09:39)
[2019-02-18] MEDS: Pantoprazole 40 MG VIAL IVP SCH (09:40)
[2019-02-18] MEDS ORDERED: traMADol HCl 50 MG TAB PO PRN ×2 (10:15)
[2019-02-18] MEDS ORDERED: Acetaminophen 500 MG TAB PO PRN (10:15)
[2019-02-18] MEDS ORDERED: Ibuprofen 600 MG TAB PO PRN (10:15)
[2019-02-18] MEDS ORDERED: Lactated Ringer's 1,000 ML IV SCH (10:18)
--- NOTE | 2019-02-18 10:34 | PRG ---
DATE OF SERVICE: 02/18/2019 SUBJECTIVE: Mr. Reyna is doing well. He is still on amiodarone drip, awaiting a telemetry bed availability. He is awake and alert. He has had bowel movements. His NG tube output is 200 mL over the past 24 hours, urine output 1795. OBJECTIVE: LUNGS: Clear to auscultation. No wheezing. CARDIAC: Irregular. Atrial flutter. ABDOMEN: Soft plus bowel sounds. Nondistended. Wound VAC in place. EXTREMITIES: Unremarkable. LABORATORY DATA: White count 8, hemoglobin 11.3. Basic metabolic profile is normal. ASSESSMENT AND PLAN: Doing well after incisional hernia strangulated repair 4 days ago with bowel resection 5 feet. We will discontinue his NG tube and advance his diet to full liquids and advance as tolerated. We will saline lock him and remove his Carmen catheter. He can start oral medications for his atrial flutter and hopefully, wean his drips. He will be moved to telemetry when a bed is available. We will view his wound in the morning. Job ID: [id number]
--- NOTE | 2019-02-18 18:02 | CON ---
DATE OF CONSULTATION: 02/18/2019 REFERRING PHYSICIAN: Jaime Mcdaniel MD REASON FOR CONSULTATION: Atrial fibrillation, atrial flutter. This is a consultation performed by Dr. Cyrus Haque. HISTORY OF PRESENT ILLNESS: Mr. Reyna is an unfortunate 73-year-old gentleman with colon cancer and liver metastases, who undergone several abdominal surgeries and frequently has episodes of atrial fibrillation postoperatively. He underwent GI surgery on 02/14/2019 for an incarcerated hernia and shortly after went into atrial flutter with RVR. He was admitted to [facility] after his surgery to treat his atrial flutter. He was started amiodarone drip and diltiazem drip at 10 mg/h for rate control. He does have a history of atrial fibrillation and atrial flutter and has been managed by his hand model, Dr. Mcdaniel. There has been by chart review many discussions regarding oral anticoagulation, which the patient has been adamant and refusing, but has voiced understanding the risks for embolic strokes. He denies any heart racing, palpitations, chest pain, pressure, syncope, near-syncope, stroke or stroke-like symptoms. Per discussion with Mr. Reyna, he only has atrial fibrillation episodes following his GI surgery, but then will convert back to normal rhythm within a week after his surgery. He continues to smoke at least a pack a day, which he has done for the past 50 to 60 years. REVIEW OF SYSTEMS: A 12-point review of systems was conducted and is negative except that listed above in HPI. PAST MEDICAL HISTORY: 1. Metastatic colon cancer, mets to the liver. 2. Hypertension. 3. Atrial fibrillation and atrial flutter. 4. Cataract surgery. 5. Tobacco habituation, 60-pack/year history. 6. Multiple GI surgeries. 7. Incarcerated hernia, status post surgical repair on 02/14/2019. ALLERGIES: NONE. HOME MEDICATIONS: 1. Florastor daily. 2. DuoNeb q.4 hours p.r.n. 3. Tramadol p.r.n. 4. Phenergan 12.5 mg p.r.n. FAMILY HISTORY: Noncontributory. ALLERGIES: NO KNOWN DRUG ALLERGIES. SOCIAL HISTORY: He is . Positive for ongoing tobacco habituation. Denies alcohol or illicit drug use. PHYSICAL EXAMINATION: VITAL SIGNS: Temperature 99.1, pulse 73, blood pressure 123/61, respirations 18, oxygen is 92% on room air. GENERAL: The patient is alert and oriented. Speech is clear. Affect is appropriate. He is a fair historian. He is resting comfortably in bed and in no apparent distress. HEENT: He is normocephalic and atraumatic. Sclerae anicteric. EOMs are intact. Oral mucosa is moist and pink. He does appear older than the stated age with quite weathered skin. NECK: Supple without jugular venous distention. CARDIOVASCULAR: Heart rate is irregularly irregular and occasionally rapid. PMI is nondisplaced. LUNGS: Clear to auscultation bilaterally without wheezes, crackles, or rhonchi. Respirations are even and unlabored. ABDOMEN: Recent surgical incision with multiple old scars noted. Hypoactive bowel sounds are heard. EXTREMITIES: Warm and dry to touch without clubbing, cyanosis, or edema. NEUROLOGIC: Grossly intact and nonfocal. Gait was not assessed. DATABASE: Laboratory; WBC 8.8, hemoglobin 11.3, hematocrit 35.5, platelet count is 179. Chemistry; potassium 3.8, creatinine 0.75, phosphorus 1.3, magnesium 1.9. Telemetry and EKGs were all personally reviewed and reflect atrial flutter with variable AV conduction. Occasionally, 2:1 flutter with ventricular rate as high as 141 beats per minute. There is transient normal sinus rhythm seen on 02/15/2019 and 02/14/2019. It appears the patient went into atrial flutter on 02/16. IMPRESSION: 1. Atrial flutter/history of atrial fibrillation. 2. CHADS-VASc score of greater than or equal to 2 for advanced age and hypertension (currently not on appropriate anticoagulation). 3. Metastatic colon cancer. 4. Recent gastrointestinal surgery for incarcerated hernia. PLAN AND RECOMMENDATIONS: I had a discussion with Mr. Reyna today about atrial arrhythmias and possible treatment options. Ultimately, it comes down to whether or not the patient is willing to go on anticoagulation. He has refused this in the past and continues to do so today. He feels that he will likely convert back to sinus rhythm in the next few days, which he feels this is a trend for him following GI surgeries. We discussed the risks for stroke, which he voices understanding. At this point, recommendations are for continued rate control on anticoagulation if he is willing to take this. If he is agreeable for even short-term anticoagulation of 1 to 2 months, we could consider doing flutter ablation on him as an outpatient. For now, he and his both voiced wishing to allow time to heal following his recent GI surgery and then we will see them back in clinic to discuss further treatment options. Thank you for allowing me to participate in the care of this patient. Job ID: [id number]
[2019-02-18] MEDS: Amiodarone 450 MG in Dextrose 5% in Water 250 ML IVPB SCH (22:15)
[2019-02-19] MEDS: Meropenem 2 GM, Admixture Fee 1 EACH in Sodium Chloride 0.9% 100 ML IVPB SCH (04:40)
[2019-02-19 05:01] LABS: #Eosinphils 0.2 thou/uL (0.0-0.7); #Lymphocytes 0.9 thou/uL (1.20-3.40); #Monocytes 0.5 thou/uL (0.11-0.59); #Neutrophils 6.5 thou/uL (1.40-6.50); %Eosinophils 2.5 % (0.0-10.0); %Lymphocytes 11.5 % (21.0-51.0); %Monocytes 5.8 % (0.0-10.0); %Neutrophils 80.2 % (42.0-75.0); Hemoglobin 10.9 g/dL (14.0-18.0); Mean Corpuscular HGB CONC 32.4 g/dL (32.0-36.0); Mean Corpuscular Hemoglobin 30.3 pg (27.0-31.0); Mean Corpuscular Volume 93.6 fL (78.0-98.0); Mean Platelet Volume 8.4 fL (7.4-10.4); Platelet Count 177 thou/uL (130-400); RBC Distribution Width 13.2 % (11.5-14.5); Red Blood Cell (RBC) Count 3.59 mill/uL (4.70-6.10); White Blood Cell (WBC) Count 8.1 thou/uL (4.8-10.8)
[2019-02-19 05:17] LABS: Anion Gap 10 mmol/L (10-20); BUN (Urea Nitrogen) 6 mg/dL (8.4-25.7); Calc. Creatinine Clearance 114 mL/min (70-130); Calcium 8.3 mg/dL (7.8-10.44); Carbon Dioxide 32 mmol/L (23-31); Chloride 98 mmol/L (98-107); Estimated GFR-MDRD Greater than 90; Glucose 105 mg/dL (83-110); Potassium 3.5 mmol/L (3.5-5.1); Sodium 136 mmol/L (136-145)
--- NOTE | 2019-02-19 06:32 | PDOC.CTH ---
Cardiology Progress Note - Subjective No complaints. Still not taking po - Objective Vital Signs Temp Pulse Resp Pulse Ox 02/19/19 04:07 98.7 F 02/19/19 00:23 79 16 92 L 02/19/19 00:05 97.2 F L 02/18/19 19:12 98.9 F Admit Weight 186 lb 11.704 oz Weight 202 lb 12.8 oz 02/17/19 02/18/19 02/19/19 06:59 06:59 06:59 Intake Total 4195 1780 1420 Output Total 2605 1995 700 Balance 1590 -215 720 - Physical Examination General/Neuro: alert & oriented x3, NAD Neck: carotid US brisk, no JVD present Lungs: unlabored respirations Heart: other: (irr) Abdomen: NT/ND, soft Extremities: + femoral B - Telemetry Telemetry Rhythm: af - Labs Result Diagrams: 02/19/19 04:40 02/19/19 04:40 Troponin/CKMB Troponin I 0.016 ng/mL (< 0.028) 02/13/19 13:02 - Assessment/Plan Afib Recent incarcerated hernia Colon cancer Tobacco abuse Continue rate control with IV CCB Add po CCB when appropriate Change to BID lovenox Add NOAC when ready for DC
--- NOTE | 2019-02-19 10:07 | PRG ---
DATE OF SERVICE: 02/19/2019 SUBJECTIVE: This morning, he is doing better, still in atrial fibrillation. OBJECTIVE: VITAL SIGNS: Saturations are 92% on 2 L, pulse 75, temperature 99, blood pressure . CHEST: Decreased breath sounds. No wheezing. CARDIAC: Normal S1 and S2. No gallops. ABDOMEN: No masses. ASSESSMENT: 1. Supraventricular tachycardia, EP being consulted. 2. Metastatic cancer, chronic obstructive pulmonary disease. PLAN: Surgery switched him over to oral antibiotic. PT supportive care. We will follow. Job ID: [id number]
[2019-02-19] MEDS: Diltiazem 125 MG in Sodium Chloride 0.9% 100 ML IVPB SCH ×2 (10:43→23:23)
[2019-02-19] MEDS: Enoxaparin Sodium 40 MG/0.4 ML SYRINGE SC SCH (10:43)
--- NOTE | 2019-02-19 10:43 | PRG ---
DATE OF SERVICE: 02/19/2019 SUBJECTIVE: Vikas Reyna is doing well today. He is in IMCU, on amiodarone and Cardizem drip to control his atrial flutter. His rate is 70. He is followed by Dr. Mcdaniel. He is tolerating a regular diet. His all medications have been converted to p.o. We will plan to stop his meropenem today. OBJECTIVE: VITAL SIGNS: Temperature 99, blood pressure 95/79, and heart rate 84. LUNGS: Clear to auscultation. CARDIAC: Regular rate and rhythm without murmur or gallop. ABDOMEN: Soft, nontender, and nondistended. Bowel sounds present. Wound VAC in place, to be changed today. Pathology resected small bowel segment noting transmural necrosis in small bowel resected at 97 cm. LABORATORY DATA: White count 8 and hemoglobin 10.9. Basic metabolic profile is normal. Potassium 3.5. ASSESSMENT AND PLAN: Atrial flutter, on Cardizem and amiodarone drip. Oral medication controlled per Dr. Mcdaniel. He is tolerating his diet. Meropenem will be discontinued today. Transfer to telemetry whenever a bed is available per Cardiology. Job ID: [id number]
[2019-02-19] MEDS: Saccharomyces boulardii 250 MG CAP PO SCH (10:46)
[2019-02-19] MEDS: Amiodarone 450 MG in Dextrose 5% in Water 250 ML IVPB SCH (13:40)
[2019-02-20] MEDS: Amiodarone 450 MG in Dextrose 5% in Water 250 ML IVPB SCH (05:36)
--- NOTE | 2019-02-20 06:18 | PDOC.CTH ---
Cardiology Progress Note - Subjective No complaints - Objective Vital Signs Temp Pulse Resp Pulse Ox 02/20/19 03:38 99.2 F 02/19/19 23:34 76 16 94 L 02/19/19 23:25 99.8 F H 02/19/19 19:38 99.2 F 02/19/19 18:32 73 20 96 Admit Weight 186 lb 11.704 oz Weight 197 lb 14.4 oz 02/18/19 02/19/19 02/20/19 06:59 06:59 06:59 Intake Total 178 2710 1040 Output Total 1994 1150 202 Balance -215 1560 838 - Physical Examination General/Neuro: alert & oriented x3, NAD Neck: no JVD present Lungs: unlabored respirations Heart: other: (irr) Abdomen: NT/ND, soft Extremities: + femoral B - Labs Result Diagrams: 02/19/19 04:40 02/19/19 04:40 Troponin/CKMB Troponin I 0.016 ng/mL (< 0.028) 02/13/19 13:02 - Assessment/Plan Afib Incarcerated hernia s/p repair Tob abuse Colon cancer Add PO CCB Decrease IV CCB R/B of NOAC discussed. Pt would like to proceed with ACT
--- NOTE | 2019-02-20 08:19 | PRG ---
DATE OF SERVICE: 02/20/2019 SUBJECTIVE: Mr. Reyna is doing well today. He is on a diltiazem drip and amiodarone for his atrial flutter. He is rate controlled. He is tolerating a regular diet. He is having bowel movements. I have talked to Dr. Mcdaniel, and plan is to discontinue his amiodarone drip and diltiazem and start him on Cardizem p.o. He is safe to start on anticoagulation, and Dr. Mcdaniel will attend to this. Once his drips were discontinued, he can stop his TKO or IV. The patient has been screened for rehab beginning yesterday, and I have talked to Dr. Bridges and Dr. Mcdaniel and the patient should be ready to go to rehab tomorrow, 02/21/2019. The patient lives at home with his , but would benefit from rehab. OBJECTIVE: LUNGS: Coarse breath sounds. No wheezing. CARDIAC: Regular rate and rhythm. Atrial flutter. ABDOMEN: Soft and nontender. Bowel movements are occurring. Tolerating regular diet. LABORATORY DATA: Laboratories none today. ASSESSMENT/PLAN: 1. Chronic obstructive pulmonary disease, tobacco abuse prior to this admission. Coarse breath sounds, desaturation at night. He will need oxygen for now, and hopefully, this can be weaned in rehab. I have discussed with Dr. Bridges, and the patient's pulmonary status is stable and he can be go to rehab from pulmonary standpoint. 2. Atrial flutter. I have talked to Dr. Mcdaniel, who have weaned his diltiazem and amiodarone drip today. Start him on Cardizem p.o. and begin him on anticoagulation. It is safe to start anticoagulation today. Open wound of abdomen with wound VAC change 2 to 3 times a week. 3. Deconditioning. Status post repair of incarcerated strangulated incisional hernia with resection of 5.5 feet of small bowel with primary anastomosis. 4. Hepatic metastasis from colon cancer. No evidence of extrahepatic disease. Ongoing chemotherapy to be resumed in the future after a period of reconditioning. Stable hemoglobin at 10.9 to 11. Job ID: [id number]
--- NOTE | 2019-02-20 08:36 | PRG ---
DATE OF SERVICE: 02/20/2019 SUBJECTIVE: Vikas Reyna looks better this morning, less short of breath, less cough, less wheezing. OBJECTIVE: VITAL SIGNS: Sats are 94% on 2, we are going to try him on room air. If his sats are low, he is going to require low-flow O2. Temperature 98, pulse 74, blood pressure 126/63. CHEST: No wheezing. CARDIAC: Normal S1, S2. No gallops. ABDOMEN: No masses. ASSESSMENT: 1. Status post lap, incarcerated hernia. 2. Supraventricular tachycardia. 3. Severe chronic obstructive pulmonary disease. PLAN: Continue neb treatments, supportive care. Added Adam. Job ID: [id number]
[2019-02-20] MEDS: Saccharomyces boulardii 250 MG CAP PO SCH (09:33)
[2019-02-20] MEDS: Enoxaparin Sodium 40 MG/0.4 ML SYRINGE SC SCH (09:33)
[2019-02-20] MEDS: Diltiazem 125 MG in Sodium Chloride 0.9% 100 ML IVPB SCH (12:23)
[2019-02-20] MEDS: Mometasone/Formoterol 120 PUFF INHALER INH SCH (18:55)
[2019-02-21] MEDS: Saccharomyces boulardii 250 MG CAP PO SCH (08:47)
[2019-02-21] MEDS: Enoxaparin Sodium 40 MG/0.4 ML SYRINGE SC SCH (08:48)
[2019-02-21] MEDS: Mometasone/Formoterol 120 PUFF INHALER INH SCH ×2 (10:56→18:36)
[2019-02-21] MEDS: Diltiazem 125 MG in Sodium Chloride 0.9% 100 ML IVPB SCH (11:44)
[2019-02-21] MEDS: Amiodarone 450 MG in Dextrose 5% in Water 250 ML IVPB SCH (11:44)
--- NOTE | 2019-02-21 13:23 | PRG ---
DATE OF SERVICE: 02/21/2019 SUBJECTIVE: The patient remains on the telemetry floor. He is status post repair of a incarcerated strangulated incisional hernia with resection of 5.5 feet of small bowel with primary anastomosis. The patient also had atrial flutter which has been treated with IV Cardizem and amiodarone that were being weaned off and transitioned to p.o. He is currently awaiting clearance by Cardiology to be discharged or transferred to inpatient rehab. From a surgical standpoint, he is cleared for him to go to rehab. The patient has no issues overnight. He is tolerating a diet. His bowel function has returned, and his pain is controlled. OBJECTIVE: VITAL SIGNS: Temperature is 97.9, heart rate 71, blood pressure 123/60, respirations 18, and oxygen saturation is 94% on 2 L via nasal cannula. GENERAL: The patient is resting comfortably in bed. He is awake, alert, and oriented x3. LUNGS: Have scattered rhonchi bilateral. No wheezing. HEART: Regular rate and rhythm. ABDOMEN: Soft, nontender with active bowel sounds. Surgical site is clean, dry, and intact. DIAGNOSTIC STUDIES: There are no labs or radiographs reviewed this morning. ASSESSMENT: 1. Status post repair of incarcerated strangulated incisional hernia with resection of 5.5 feet of small bowel with primary anastomosis. 2. Chronic obstructive pulmonary disease, being managed by Pulmonary, stable. 3. Atrial flutter, being managed by Cardiology, stable. Transitioning from IV to p.o. medications. 4. Deconditioning secondary to above. 5. Hepatic metastasis from colon cancer, stable. PLAN: Plan will be to await p.o. transition to his cardiac medications and approval for rehab. The patient will continue his wound care in rehab, his respiratory care, and other supportive care. Evaluation and examination were discussed with Dr. Hastings during rounds this morning. Job ID: [id number]
--- NOTE | 2019-02-21 13:30 | PRG ---
DATE OF SERVICE: SUBJECTIVE: Mr. Reyna is doing well. He has no acute complaints. OBJECTIVE: VITAL SIGNS: On exam, his temperature is 97.9, pulse 71, respirations 16, O2 saturation 95% on 2 L, and blood pressure 123/60. HEENT: Clear. NECK: No JVD. CHEST: Clear without wheezing. CARDIAC: S1, S2. Regular. ABDOMEN: Soft. Wound VAC midline-wound healing well. EXTREMITIES: No edema. LABORATORY DATA: None. ASSESSMENT: 1. Status post laparotomy. 2. Severe chronic obstructive pulmonary disease. PLAN: Continue nebulization treatments and Dulera. Job ID: [id number]
[2019-02-21 13:36] VITALS: BMI 25.6
[2019-02-21] MEDS ORDERED: Diltiazem 125 MG in Sodium Chloride 0.9% 100 ML IVPB SCH (15:02)
[2019-02-21] MEDS: Amiodarone 200 MG TAB PO SCH (20:45)
[2019-02-21] MEDS: Apixaban 5 MG TAB PO SCH (20:45)
[2019-02-22] MEDS: Mometasone/Formoterol 120 PUFF INHALER INH SCH ×2 (07:05→19:35)
[2019-02-22] MEDS: Saccharomyces boulardii 250 MG CAP PO SCH (09:40)
[2019-02-22] MEDS: Apixaban 5 MG TAB PO SCH ×2 (09:40→20:34)
[2019-02-22] MEDS: Amiodarone 200 MG TAB PO SCH ×2 (09:40→20:34)
--- NOTE | 2019-02-22 12:59 | PRG ---
DATE OF SERVICE: 02/22/2019 SUBJECTIVE: The patient is up in a chair, looks to be doing well. He had no acute complaints other than that he was tired and wanted to go back to bed. OBJECTIVE: VITAL SIGNS: On exam, his temperature is 98.4, pulse 74, blood pressure 144/65, O2 saturation 94% on room air. HEENT: Unremarkable. NECK: No JVD. CHEST: Clear to auscultation without wheezing or rhonchi. CARDIAC: S1 and S2, regular. ABDOMEN: Midline wound VAC noted. EXTREMITIES: No edema. LABORATORY DATA: No labs were obtained today. ASSESSMENT: 1. Status post laparotomy. 2. Severe chronic obstructive pulmonary disease, which is clinically stable. PLAN: Continue nebulization treatments and Dulera. No further recommendations at this time. Job ID: [id number]
--- NOTE | 2019-02-22 22:29 | PRG ---
DATE OF SERVICE: 02/22/2019 This is Blas Brower PA-C dictating a report for Jose J Hastings DO. SUBJECTIVE: The patient remains on the telemetry floor. He is status post repair of an incarcerated strangulated incisional hernia and is postop day 10 from that. The patient had an episode of atrial flutter and fibrillation requiring evaluation by Cardiology. The patient also has known COPD, with Pulmonology following along. The patient from a General Surgery standpoint has been stable for transfer for rehab. We are waiting Pulmonology and Cardiac agreement on this. It appears from today's note, Dr. Gaston feels that he is stable and we should be able to proceed from his standpoint. We will just wait for Cardiology to agree to transport. Now, the patient has been off his IV antiarrhythmics. We will await for their final input. Otherwise, the patient is doing well. His pain is controlled. He is tolerating his diet and his bowel function has returned. OBJECTIVE: GENERAL: The patient is resting comfortably in bed. VITAL SIGNS: Temperature is 97.7, heart rate 97, blood pressure 129/63, respirations 16, oxygen saturation 93% on room air. LUNGS: Scattered rhonchi without wheezing. HEART: Regular rate and rhythm. ABDOMEN: Soft, flat, nontender with active bowel sounds. Surgical site is clean, dry, and intact. LABORATORY DATA: There are no labs or radiographs to review this morning. ASSESSMENT: 1. Status post repair of incarcerated strangulated incisional hernia with resection 5.5 feet of small bowel with primary anastomosis. 2. Chronic obstructive pulmonary disease, stable. 3. Atrial flutter, stable. 4. Deconditioning secondary to above. 5. Hepatic metastasis from colon cancer, stable. PLAN: Plan will be to continue supportive care and continue working on placement. The evaluation and examination were done with Dr. Hastings this morning during rounds. Job ID: [id number]
[2019-02-23] MEDS: Mometasone/Formoterol 120 PUFF INHALER INH SCH ×2 (07:14→19:02)
[2019-02-23] MEDS: Apixaban 5 MG TAB PO SCH ×2 (09:16→20:18)
[2019-02-23] MEDS: Saccharomyces boulardii 250 MG CAP PO SCH (09:16)
[2019-02-23] MEDS: Amiodarone 200 MG TAB PO SCH ×2 (09:16→20:18)
--- NOTE | 2019-02-23 22:49 | PRG ---
DATE OF SERVICE: 02/23/2019 SUBJECTIVE: This is a 73-year-old gentleman, who is status post repair of an incarcerated strangulated incisional hernia and postoperative day 10 from that. The patient remains on the telemetry floor. The patient required a Cardiology consult as he had an episode of atrial flutter and atrial fibrillation. The patient had no overnight events. The patient's rate remains controlled. The patient's pain is well controlled. The patient is sitting up in the chair and voices no complaints at this time. The patient is tolerating a regular diet and having bowel movements. OBJECTIVE: VITAL SIGNS: Temperature 97.5, pulse 106, respirations 16, SpO2 of 96% on 2 L, and blood pressure 116/74. GENERAL: The patient is awake, alert, sitting up in the chair, in no distress. LUNGS: Scattered rhonchi. No respiratory distress, good inspiratory and expiratory effort. HEART: Irregular rhythm. ABDOMEN: Soft, flat, nontender, nondistended. Surgical site is clean, dry, and intact. LABORATORY DATA: There are no labs to evaluate today. IMPRESSION: 1. Status post repair of incarcerated strangulated incisional hernia with resection of small bowel with primary anastomosis. 2. Chronic obstructive pulmonary disease, stable. 3. Atrial flutter, stable 4. Deconditioning, secondary to above. 5. Hepatic metastases from colon cancer, stable. PLAN: We will continue supportive care and continue pain regimen. Pending placement to rehab. The plan was discussed with Dr. Hastings, who agrees. Job ID: [id number] MTDD
[2019-02-24] MEDS: Mometasone/Formoterol 120 PUFF INHALER INH SCH (07:15)
[2019-02-24] MEDS: Amiodarone 200 MG TAB PO SCH ×2 (09:08→15:23)
[2019-02-24] MEDS: Apixaban 5 MG TAB PO SCH (09:08)
[2019-02-24] MEDS: Saccharomyces boulardii 250 MG CAP PO SCH (09:09)
--- NOTE | 2019-02-24 09:37 | PRG ---
DATE OF SERVICE: 02/24/2019 SUBJECTIVE: He is doing well. He is still in atrial fibrillation. He is on a Cardizem, status post lap for incarcerated hernia. Denies difficulty breathing. OBJECTIVE: VITAL SIGNS: Saturations are 99 on 2 L, respiratory rate 20, temperature 97, and blood pressure 115/73. CHEST: No wheezing. CARDIAC: Normal S1 and S2. No gallops. ABDOMEN: No masses. IMPRESSION AND PLAN: Chronic obstructive pulmonary disease, status post surgery for incarcerated hernia, and supraventricular tachycardia. Once his cardiac rhythm has been stabilized, he can be transferred. Job ID: [id number]
[2019-02-24 17:02] VITALS: BP 130/66; TEMP 98.8
--- NOTE | 2019-02-25 22:55 | EKG ---
Test Reason : Blood Pressure : / mmHG Vent. Rate : 094 BPM Atrial Rate : 322 BPM P-R Int : 000 ms QRS Dur : 078 ms QT Int : 438 ms P-R-T Axes : 000 002 -45 degrees QTc Int : 547 ms Atrial flutter with variable A-V block Nonspecific T wave abnormality Prolonged QT Abnormal ECG When compared with ECG of 16-FEB-2019 09:12, Vent. rate has decreased BY 48 BPM Questionable change in QRS axis Nonspecific T wave abnormality has replaced inverted T waves in Inferior leads Nonspecific T wave abnormality now evident in Anterior leads Confirmed by MIREYA CALL ([id number]) on 02/25/2019 10:55:16 PM Referred By: JOSSY Confirmed By:MIREYA CALL
--- NOTE | 2019-02-26 10:37 | DIS ---
DATE OF ADMISSION: 02/13/2019 DATE OF DISCHARGE: 02/24/2019 CONSULTS: 1. Cardiology, Dr. Bocanegra. 2. EP, electrophysiology, Dr. Melvin. 3. Pulmonology, Dr. Bridges. DISCHARGE PHYSICIAN: Dr. Pena. PROCEDURES: 1. On 02/13/2019, chest x-ray; chronic findings, lungs are hyperinflated, Port-A-Cath in place, large bulla right mid lobe, abnormal linear markings in the left lung base unchanged from previous. 2. On 02/13/2019, abdomen and pelvis CT; impression: Ventral hernia containing dilated loops of bowel. May represent incarcerated hernia and bowel obstruction. Hypodensities in the liver concerning for hepatic metastatic disease. Right adrenal myelolipoma. 3. Acute abdomen series. No evidence of free air. Small bowel obstruction on 02/14/2019. Procedure performed by Dr. Pena. Laparoscopy converted to a laparotomy with resection of hernia sac, lysis of adhesions, section of 63 inches gangrenous mid small bowel, nonviable, preservation of 47 inches proximal jejunum, and preservation of 55 inches distal lumen with primary anastomosis. 4. Chest x-ray on 02/14/2019, right subclavian central venous catheter and nasogastric tube are in good radiographic position. There is interval increase of left pleural fluid and left basilar atelectasis. 5. On 02/17/2019, pathology of surgical specimen, small bowel partial resection, inflammatory changes are seen at the proximal and distal resection margins. No dysplasia or malignancy identified. PRIMARY DIAGNOSES: Metastatic colon cancer with incisional hernia that is symptomatic. Left hepatic lobectomy and third operation to treat metastatic focus, right lobe, ongoing chemotherapy for colon, hepatic metastasis, incarcerated strangulated incisional hernia with small bowel gangrene and Dehydration. SECONDARY DIAGNOSES: Tobacco use, history of atrial fibrillation, and history of right colon resection. DISCHARGE MEDICATIONS: 1. Acetaminophen 1000 mg p.o. q.6 hours. 2. Amiodarone 400 mg p.o. b.i.d. 3. Eliquis 5 mg p.o. b.i.d. 4. Cardizem CD 120 mg daily. 5. Motrin 600 mg p.o. q.6 hours. 6. DuoNeb q.4 hours. 7. Dulera inhaler b.i.d. 8. Zofran p.r.n. 9. Florastor 250 mg p.o. daily. 10. Ultram 50 mg p.o. q.4 hours p.r.n. pain. There are no discontinued medications. HISTORY OF PRESENT ILLNESS AND HOSPITAL COURSE: This is a 73-year-old gentleman followed by Dr. Whittington, who Dr. Pena started assuming care over the weekend. In September 2015, the patient had a right colectomy for obstructing tumor, metastasis to liver, laparoscopic hand assisted with a left subclavian vein MediPort placement. T3 N1 M1 right colon cancer. He had liver metastasis at that time. He has seen Dr. Lopez, undergone left hepatic lobectomy and treatment of the right hepatic lobe lesions. He has lesions that are followed. The patient had echocardiogram in September 2018 that read EF as 60 to 65. The patient underwent the above- mentioned procedures. The patient was also followed by Pulmonary and Cardiology during his hospital encounter. The patient had a wound VAC placed to his abdomen. The patient remained rate controlled on the telemetry floor. Cardiology placed the patient on p.o. medications for rate control for his atrial fibrillation, atrial flutter. The patient was eventually cleared by Cardiology. The patient had return of bowel function and passing gas. The patient was able to tolerate a diet with no issues. The patient's pain was well managed and controlled. The patient voices no complaints on the day of discharge. The patient's exam was unremarkable including cardiopulmonary and GI exam. On the day of discharge, the patient was deemed stable for discharge to inpatient rehab. The plan was discussed with Dr. Hastings and Dr. Pena, who agreed with the plan. DISPOSITION: Stable. DISCHARGE INSTRUCTIONS: 1. Inpatient rehab. 2. Diet: Regular diet. 3. Activity: Activity as tolerated. No lifting greater than 25 pounds. 4. Followup: Follow up with Dr. Pena in 2 to 3 weeks and Follow up with Dr. Mcdaniel in 3 to 4 weeks. 5. Wound VAC change 2 to 3 times a week. This is just a summary of the hospital course. Job ID: [id number] MTDD
== END 2019-02-24 17:20 | DRG 330 ==
LOC: ERS 12:36 → ERHOLD 22:08 → CCU 02-14 02:02 → IMCU/EMU 02-17 17:32 → 2NO 02-20 13:47
PROVIDERS: ADMIT Surgery; ATTEND Surgery
PROC: 0DBB0ZZ Excision of Ileum, Open Approach (ICD-10-PCS; principal; 2019-02-14)
PROC: 0WJG4ZZ Inspection of Peritoneal Cavity, Percutaneous Endoscopic Approach (ICD-10-PCS; 2019-02-14)
PROC: 0D1A0ZB Bypass Jejunum to Ileum, Open Approach (ICD-10-PCS; 2019-02-14)
PROC: 0WQF0ZZ Repair Abdominal Wall, Open Approach (ICD-10-PCS; 2019-02-14)
DX: K43.1 Incisional hernia with gangrene (principal); C78.7 Secondary malignant neoplasm of liver and intrahepatic bile duct; C78.5 Secondary malignant neoplasm of large intestine and rectum; K56.7 Ileus, unspecified; I48.92 Unspecified atrial flutter; I47.1 Supraventricular tachycardia; J44.9 Chronic obstructive pulmonary disease, unspecified; I48.91 Unspecified atrial fibrillation; I10 Essential (primary) hypertension; F17.210 Nicotine dependence, cigarettes, uncomplicated; Z53.31 Laparoscopic surgical procedure converted to open procedure; Z91.14 Patient's other noncompliance with medication regimen; Z90.49 Acquired absence of other specified parts of digestive tract; Z85.038 Personal history of other malignant neoplasm of large intestine
CPT/HCPCS: 36415; 71045; 74022; 74177; 80048; 80053; 81003; 81015; 82248; 82378; 83615; 83690; 83735; 84100; 84484; 84550; 85025; 88307; 90471; 90670; 93005; 93010; 94640; 96361; 96374; 96375; C9113; G0009; J0131; J0282; J0670; J1160; J1650; J2001; J2185; J2250; J2270; J2370; J2405; J2550; J2704; J3010; J3475; J3490; J7070; J7620; P9045; P9047; Q9966; S0028

== ENCOUNTER 2019-04-18 11:37 | Outpatient (CLI) | payer MEDICARE, BC ==
--- NOTE | 2019-04-18 12:51 | CT ---
CT OF CHEST AND ABDOMEN AND PELVIS PERFORMED WITH INTRAVENOUS CONTRAST ENHANCEMENT: HISTORY: Colon cancer with metastatic disease to the liver. Elevated CEA. History of colon resection and her amish repair. COMPARISON: A CT abdomen and pelvis performed 02/13/2019 and a PET scan performed 04/15/2016. FINDINGS: There are marked emphysematous lung changes seen. I do not visualize any pulmonary nodules or pleura l effusions. No infiltrative-type process. No significant mediastinal, hilar, or axillary lymphadenopathy noted. CT OF ABDOMEN PERFORMED WITH COTNRAST ENHANCEMENT: Two small hypodensities within the dome of the liver are similar to the prior examination. These cou ld possibly represent cysts. Within the more posterior aspect of the right lobe, there is a liver ma ss. It has either some central enhancement or faint calcification similar to the prior exam. It fernando sured 3.4 cm on the prior study and appears slightly increased size at 4.5 cm. Along the lateral sharri face of the right lobe of the liver on axial image 67 is a soft tissue density change. It measures 1 .8 cm in size and is similar to the previous exam. Directly inferior to this is a second hypodense a lul along the liver surface with some associated surgical clips. This area is better visualized on t his examination. It is felt to be fairly similar in size at approximately 5.2 cm in maximum length. The spleen and pancreas regions appear unremarkable. The gallbladder appears to have been removed. A predominantly fat density lesion compatible with a myelolipoma of the right adrenal is present. It measures 3.4 cm. The left adrenal gland is normal. Right and left kidneys are normal in size. Tin y hypodensities involving the kidneys are statistically most likely cysts and are stable. There is n o significant periaortic adenopathy demonstrated. Small subcentimeter periaortic nodes are seen. Th e abdominal aorta is not aneurysmal. Since the previous examination, there has been a ventral hernia repair. There are some small mesente kim lymph nodes seen. There are surgical sutures seen in some of the small bowel loops in the left c olon and also in this area is a soft tissue mass within the mesenteric fat measuring 5.1 cm in size. The central portion of this shows CT Hounsfield unit numbers that are fat density. This probably re presents an area of fat necrosis within the mesentery related to the hernia repair. The mesenteric n odes could very well be reactive in nature. CT OF PELVIS PERFORMED WITH CONTRAST ENHANCEMENT: The prostate is enlarged. There is no evidence of any significant adenopathy or mass. Review of osseous structures did not show any lytic or blastic bony change. IMPRESSION: 1. Emphysematous lung change. 2. Multiple liver masses which all appear relatively stable in size with the exception of one within the posterior aspect of the right lobe which measured 3.4 cm on the prior exam and now measuring 4.5 cm in maximum dimension. This may represent a slight interval increase in size, but I am not certai n now much of this may just be technique related as the differentiation between liver and all of the liver lesions on this current study are much better than on the previous exam and some of this may ju st be technique related but a followup would be recommended. 3. Interval ventral hernia repair of what is probably an area of fat necrosis related to the hernia repair. Postoperative suture material is seen related to some of the small bowel loops in this area and some small mesenteric lymph nodes are felt to be reactive in nature on the basis of the surgery. 4. Postop resection of a portion of the left lobe of the liver also again incidentally noted. 5. Stable right adrenal myelolipoma. POS: [facility]
== END 2019-04-18 11:38 | disposition home or self-care (01) ==
LOC: CT 11:37
PROVIDERS: ATTEND Internal Medicine Medical Oncology
DX: C18.9 Malignant neoplasm of colon, unspecified (principal); C78.7 Secondary malignant neoplasm of liver and intrahepatic bile duct; D17.5 Benign lipomatous neoplasm of intra-abdominal organs; R16.0 Hepatomegaly, not elsewhere classified; R11.0 Nausea; Z51.12 Encounter for antineoplastic immunotherapy
CPT/HCPCS: 71260; 74177

== ENCOUNTER 2019-05-07 13:13 | Outpatient (CLI) | payer MEDICARE, BC ==
--- NOTE | 2019-05-08 11:19 | PET ---
Nuclear medicine FDG PET/CT: (Positron emission tomography and computed tomography) DATE: 05/08/2019 HISTORY: 74-year-old male with metastatic colon cancer, restaging COMPARISON: 04/15/2016 TECHNIQUE: IV injection of F-18 fluorodeoxyglucose (FDG) dose: 13 mCi. PET scan and attenuation correction CT performed from skull base to proximal thighs. FINDINGS: SUV (standard uptake values) numbers given are maximum SUVs. QCLR used. New finding of approximately 5 x 5 cm solid mass in the right lobe of liver with SUV of 12.8. New finding of absence of left lobe of liver with suture lines at margin of resection. Suture line at right transverse colon again noted. Suture line at loop of bowel at midline ventral peritoneal cavity deep to umbilicus. New since prior PET. No suspicious hypermetabolic activity in the pelvis, adrenals, pancreas, chest, or cervical lymph nod es. Bilateral hypermetabolic superficial lobe parotid nodules, one on the left, current SUV 6.8; previous SUV 9.9, and no change in size of approximately 2 x 1 cm; and 2 on the right with combined SUV of 4.3, previously 7.1.. IMPRESSION: 1) new large hypermetabolic hepatic metastasis in right lobe of liver. 2) interval status post left hepatic lobectomy. 3) bilateral parotid hypermetabolic nodules with interval decrease in FDG avidity since prior PET. 4) status post right hemicolectomy. 5) status post small bowel surgery at midline.
== END 2019-05-07 13:14 | disposition home or self-care (01) ==
LOC: PET 13:13
PROVIDERS: ATTEND Internal Medicine Medical Oncology
DX: C18.9 Malignant neoplasm of colon, unspecified (principal); C78.7 Secondary malignant neoplasm of liver and intrahepatic bile duct; Z90.89 Acquired absence of other organs; Z98.890 Other specified postprocedural states
CPT/HCPCS: 78815; A9552

== ENCOUNTER 2019-08-21 07:28 | Outpatient (CLI) | payer MEDICARE, BC ==
--- NOTE | 2019-08-21 10:13 | PET ---
PET CT: HISTORY: A 74-year-old male with colon cancer, undergoing chemotherapy. Exam requested to evaluate response to treatment. COMPARISON: PET CT of 05/07/2019. TECHNIQUE: PET scan with CT attenuation correction was performed from the base of the brain to the proximal thig hs following the intravenous administration of 12 millicuries of F18 fluorodeoxyglucose. FINDINGS: There is hypermetabolic activity in the right lobe of the liver with an SUV of 6.8 (previously 12.3). The hypermetabolic foci in the region of the parotids are again seen with an SUV of 10 on the left (p reviously 6.8) and 5.7 on the right (previously 4.3). No maryse hypermetabolism seen in the neck, chest, axillae, abdomen or pelvis. No hypermetabolic pulmo nary nodules, or skeletal lesions are seen. There is physiologic activity in the GI and tracts and in the visualized portions of the brain. CT scan used for attenuation correction demonstrates no evidence of pleural effusions or ascites. The 3.5 cm myelolipoma in the right adrenal gland is stable. Postop changes of left hepatic lobectomy an d postop changes of right hemicolectomy and small bowel surgery are again seen. The prostate is enlar ged. IMPRESSION: Partial response to therapy with interval improvement in the right hepatic metastasis since 9. POS: LESLIE
== END 2019-08-21 07:29 | disposition home or self-care (01) ==
LOC: PET 07:28
PROVIDERS: ATTEND Internal Medicine Hematology & Oncology
DX: C18.9 Malignant neoplasm of colon, unspecified (principal); C78.7 Secondary malignant neoplasm of liver and intrahepatic bile duct
CPT/HCPCS: 78815; A9552

== ENCOUNTER 2019-10-30 12:39 | Outpatient (CLI) | payer MEDICARE, BC ==
--- NOTE | 2019-10-30 14:49 | PET ---
Nuclear medicine FDG PET/CT: (Positron emission tomography and computed tomography) DATE: 10/30/2019 HISTORY: 74-year-old male with metastatic colon cancer with liver metastasis. Follow-up post treatment. COMPARISON: 08/21/2019 TECHNIQUE: IV injection of F-18 fluorodeoxyglucose (FDG) dose: 11.5 mCi. PET scan and attenuation correction CT performed from skull base to proximal thighs. FINDINGS: SUV (standard uptake values) numbers given are maximum SUVs. QCLR used. The hypermetabolic lesion at the posterior edge of the right lobe of the liver in hepatic segment 7 w ith previous SUV of 6.8, currently has SUV of 4.7. The size of the lesion is difficult to measure because the upper, hypermetabolic component has noncontrast CT attenuation similar to that of the res t of the liver parenchyma, and therefore almost impossible to measure dimensions, whereas the more inferior portion that is hypodense relative to the rest of the liver parenchyma and can be measured a s approximately 3 x 3.8 cm, is not hypermetabolic. Again noted is the approximately 3.8 x 2.7 cm right adrenal myolipoma, benign. Again noted is the low attenuation lesion at the lateral inferior aspect of the right lobe of the alex[place] er, probably hepatic segment 6, which is nonhypermetabolic. Perhaps it represents a treated lesion or surgically resected lesion. No suspicious hypermetabolic activity in the abdominal cavity or pelvic cavity outside of the liver. Postsurgical changes involving transverse colon at midline. Midline transverse colon broadly herniate s into the ventral subcutaneous fat a greater degree than previously. Another suture line involving bowel loops to the left of mid abdomen. Pulmonary parenchymal density at left lower lobe, similar to prior study could be atelectasis or scar , less likely pneumonia, appears slightly worse than previously. Not hypermetabolic. Large bulla at right lateral lung base consistent with COPD. Focal discrete left parotid nodule previously measuring 2 x 0.7 cm, currently measuring similar size, previously had SUV of 10.0, but currently has SUV of 6.0. The rest of the left parotid gland is atrophic or absent. Previously, the entire right superficial lobe of the parotid gland had SUV of 5.7. Currently, the SUV is 4.1. IMPRESSION: 1) interval decrease in SUV involving the metastatic liver lesion in hepatic segment 7 of the right l obe, evidence for partial response to treatment. 2) although the size has not changed, the discrete nodule in the region of the absent or very atrophi c superficial lobe of the left parotid gland, has decreased. Exact etiology uncertain. 3) the diffusely increased uptake in the entire superficial lobe of the right parotid gland, has also decreased.
== END 2019-10-30 12:40 | disposition home or self-care (01) ==
LOC: PET 12:39
PROVIDERS: ATTEND Internal Medicine Medical Oncology
DX: C18.9 Malignant neoplasm of colon, unspecified (principal); C78.7 Secondary malignant neoplasm of liver and intrahepatic bile duct
CPT/HCPCS: 78815; A9552

== ENCOUNTER 2021-01-28 10:40 | Outpatient (CLI) | payer MEDICARE, BC ==
[2021-01-28 18:36] LABS: SARS-CoV-2 PCR by NAA Not Detected (NotDetected)
== END 2021-01-28 10:41 | disposition home or self-care (01) ==
LOC: LABBT 10:40
PROVIDERS: ATTEND Internal Medicine Gastroenterology
DX: Z01.812 Encounter for preprocedural laboratory examination (principal); R19.8 Other specified symptoms and signs involving the digestive system and abdomen; Z20.822 Contact with and (suspected) exposure to COVID-19
CPT/HCPCS: U0003; U0005; 87635

== ENCOUNTER 2021-02-02 08:52 | Day surgery (SDC) | payer MEDICARE, BC ==
[2021-02-01 12:25] VITALS: BMI 25.3
[2021-02-02] MEDS ORDERED: Lidocaine 1% PF 5 ML VIAL ONE (10:33)
[2021-02-02] MEDS ORDERED: PROPOFOL 200 MG/20 ML VIAL ONE (10:33)
== END 2021-02-02 12:00 | disposition home or self-care (01) ==
LOC: SDC 08:52
PROVIDERS: ATTEND Internal Medicine Gastroenterology
PROC: 0DBM8ZX Excision of Descending Colon, Via Natural or Artificial Opening Endoscopic, Diagnostic (ICD-10-PCS; principal; 2021-02-02)
PROC: 0DBP8ZX Excision of Rectum, Via Natural or Artificial Opening Endoscopic, Diagnostic (ICD-10-PCS; 2021-02-02)
PROC: 3E0H8KZ Introduction of Other Diagnostic Substance into Lower GI, Via Natural or Artificial Opening Endoscopic (ICD-10-PCS; 2021-02-02)
DX: D12.8 Benign neoplasm of rectum (principal); K63.5 Polyp of colon; K64.8 Other hemorrhoids; K64.4 Residual hemorrhoidal skin tags; J44.9 Chronic obstructive pulmonary disease, unspecified; I48.91 Unspecified atrial fibrillation; I10 Essential (primary) hypertension; F17.210 Nicotine dependence, cigarettes, uncomplicated; Z85.038 Personal history of other malignant neoplasm of large intestine; Z85.05 Personal history of malignant neoplasm of liver; Z79.01 Long term (current) use of anticoagulants; Z79.899 Other long term (current) drug therapy; Z90.49 Acquired absence of other specified parts of digestive tract
CPT/HCPCS: 88305; J2704

== ENCOUNTER 2021-02-10 09:47 | Outpatient (CLI) | payer MEDICARE, BC | END 2021-02-10 09:48 | disposition home or self-care (01) | LOC: PET 09:47 | PROVIDERS: ATTEND Internal Medicine Medical Oncology | DX: C18.2 Malignant neoplasm of ascending colon (principal); C78.7 Secondary malignant neoplasm of liver and intrahepatic bile duct; R97.20 Elevated prostate specific antigen [PSA]; C79.82 Secondary malignant neoplasm of genital organs; C78.5 Secondary malignant neoplasm of large intestine and rectum | CPT/HCPCS: 78815; A9552 ==

== ENCOUNTER 2021-02-25 08:50 | Outpatient (CLI) | payer MEDICARE, BC ==
[2021-02-25 11:35] LABS: Bilirubin Neg (Negative); Blood, Urine 10 (Negative); Clarity Clear (Clear); Glucose, Urine (Dipstick) Normal (Negative); Ketone, Urine Negative (Negative); Leukocyte Negative (Negative); Nitrite Negative (Negative); Protein, Urine (Dipstick) Negative (Neg-Trace); Urobilinogen Normal mg/dL (Less than 2)
[2021-02-25 11:42] LABS: Mean Corpuscular HGB CONC 32.8 g/dL (32.0-36.0); Mean Corpuscular Hemoglobin 32.9 pg (27.0-33.0); Mean Corpuscular Volume 100.2 fl (81.2-95.1); Mean Platelet Volume 10.5 fl (7.4-10.4); Platelet Count 194 10x3/uL (150-450); RBC Distribution Width 15.2 % (11.5-14.5); Red Blood Cell (RBC) Count 4.56 10x6/uL (4.32-5.72); White Blood Cell (WBC) Count 8.2 10x3/uL (3.5-10.5)
[2021-02-25 11:54] LABS: Anion Gap 15 mmol/L (10-20); BUN (Urea Nitrogen) 8 mg/dL (8.4-25.7); Calc. Creatinine Clearance 0 mL/min (70-130); Calcium 8.6 mg/dL (7.8-10.44); Carbon Dioxide 26 mmol/L (23-31); Chloride 103 mmol/L (98-107); Glucose 101 mg/dL (83-110); INR-International Normal Ratio 1.1; PTT 28.4 sec (22.0-33.0); Potassium 3.3 mmol/L (3.5-5.1); Prothrombin Time 11.9 sec (9.5-12.1); Sodium 141 mmol/L (136-145)
[2021-02-25 12:22] LABS: RBC/HPF 0-3 HPF (0-3); WBC/HPF 0-3 HPF (0-3)
[2021-02-25 12:23] LABS: Bacteria/HPF Rare-Few HPF (None Seen); Mucous/LPF Few LPF (<2+); Squamous Epithelial None Seen HPF (0-3)
[2021-02-25 19:15] LABS: SARS-CoV-2 PCR by NAA Not Detected (NotDetected)
== END 2021-02-25 08:51 | disposition home or self-care (01) ==
LOC: LABBT 08:50
PROVIDERS: ATTEND Urology
DX: Z01.818 Encounter for other preprocedural examination (principal); Z12.5 Encounter for screening for malignant neoplasm of prostate; C78.7 Secondary malignant neoplasm of liver and intrahepatic bile duct; C18.9 Malignant neoplasm of colon, unspecified; C18.3 Malignant neoplasm of hepatic flexure; R97.20 Elevated prostate specific antigen [PSA]; I48.0 Paroxysmal atrial fibrillation; R31.29 Other microscopic hematuria; R80.9 Proteinuria, unspecified; N40.1 Benign prostatic hyperplasia with lower urinary tract symptoms; R35.0 Frequency of micturition; R31.0 Gross hematuria; D17.79 Benign lipomatous neoplasm of other sites; Z20.822 Contact with and (suspected) exposure to COVID-19; Z98.890 Other specified postprocedural states; Z90.49 Acquired absence of other specified parts of digestive tract; Z72.0 Tobacco use
CPT/HCPCS: 71046; 80048; 81001; 85027; 85610; 85730; 87086; U0003; U0005; 87186; 87635

== ENCOUNTER 2021-03-02 06:15 | Day surgery (SDC) | payer MEDICARE, BC ==
[2021-03-01 10:25] VITALS: BMI 24.3
[2021-03-02] MEDS ORDERED: Levofloxacin 500 mg/D5W 100 ml Premix Bag ONE (07:25)
[2021-03-02] MEDS ORDERED: cefOXitin Sodium/Dextrose,Iso 2 GM in Premix Bag 1 BAG IVPB SCH (07:30)
[2021-03-02] MEDS ORDERED: Midazolam HCl 2 mg/2 ml Vial ONE (07:31)
[2021-03-02] MEDS ORDERED: Ketamine 50 MG/ML (10ML VIAL) ONE (07:31)
[2021-03-02] MEDS ORDERED: Ondansetron PF 4 MG/2 ML Vial ONE (07:42)
[2021-03-02] MEDS ORDERED: Glycopyrrolate 0.2 MG/ML 5 ML SYRINGE ONE (07:42)
== END 2021-03-02 13:10 | disposition home or self-care (01) ==
LOC: SDC 06:15
PROVIDERS: ATTEND Urology
PROC: 0VB03ZX Excision of Prostate, Percutaneous Approach, Diagnostic (ICD-10-PCS; principal; 2021-03-02)
DX: C61 Malignant neoplasm of prostate (principal); N40.1 Benign prostatic hyperplasia with lower urinary tract symptoms; R35.0 Frequency of micturition; I48.0 Paroxysmal atrial fibrillation; F17.210 Nicotine dependence, cigarettes, uncomplicated; J44.9 Chronic obstructive pulmonary disease, unspecified; C18.3 Malignant neoplasm of hepatic flexure; C78.7 Secondary malignant neoplasm of liver and intrahepatic bile duct; Z79.01 Long term (current) use of anticoagulants; Z79.899 Other long term (current) drug therapy
CPT/HCPCS: 88305; 88313; 88341; 88342; J0694; J1956; J2250; J2405

== ENCOUNTER 2021-09-06 07:34 | Outpatient (CLI) | payer MEDICARE, BC | END 2021-09-06 07:35 | disposition home or self-care (01) | LOC: PET 07:34 | PROVIDERS: ATTEND Internal Medicine Medical Oncology | DX: C18.2 Malignant neoplasm of ascending colon (principal); C78.7 Secondary malignant neoplasm of liver and intrahepatic bile duct; C79.51 Secondary malignant neoplasm of bone | CPT/HCPCS: 78815; A9552 ==

== ENCOUNTER 2021-12-27 08:45 | Outpatient (CLI) | payer MEDICARE, BC | END 2021-12-27 08:46 | disposition home or self-care (01) | LOC: PET 08:45 | PROVIDERS: ATTEND Internal Medicine Medical Oncology | DX: C18.2 Malignant neoplasm of ascending colon (principal); K76.9 Liver disease, unspecified | CPT/HCPCS: 78815; A9552 ==